=== PATIENT | female | born 1955 | race Caucasian/White ===

== ENCOUNTER 2018-12-02 09:54 | Emergency (ER) | payer SELFPAY ==
[~2018-12-02] VITALS: Ht 157.5 cm; Wt 84.5 kg
[2018-12-02 10:00] VITALS: BP 205/106
--- NOTE | 2018-12-02 10:01 | NUR ---
PT AMBULATES TO BED 4
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
--- NOTE | 2018-12-02 10:19 | NUR ---
Patient being evaluated by physician at bedside.
[2018-12-02] MEDS ORDERED: LISINOPRIL 20 MG TAB PO SCH (10:25)
[2018-12-02] MEDS ORDERED: KETOROLAC 60 MG/2 ML VIAL IM ONE (10:25)
--- NOTE | 2018-12-02 10:54 | NUR ---
XRAY AT BEDSIDE
--- NOTE | 2018-12-02 11:39 | NUR ---
PT. IS RESTING COMFORTABLY IN BED, RR EVEN AND UNLABORED. WILL CONTINUE TO MONITOR.
[2018-12-02 11:55] VITALS: BP 178/82
--- NOTE | 2018-12-02 11:55 | NUR ---
Patient discharged with v/s stable. Written and verbal after care instructions given and explained. Patient alert, oriented and verbalized understanding of instructions. Ambulatory with steady gait. All questions addressed prior to discharge. ID band removed. Patient advised to follow up with PMD. Rx of NAPROSYN 375MG, LISINOPRIL 20MG given. Patient educated on indication of medication including possible reaction and side effects. Opportunity to ask questions provided and answered.
== END 2018-12-02 11:55 | disposition home or self-care (01) ==
LOC: MED 09:54
DX: S80.01XA Contusion of right knee, initial encounter (principal); S70.01XA Contusion of right hip, initial encounter; S40.022A Contusion of left upper arm, initial encounter; W01.0XXA Fall on same level from slipping, tripping and stumbling without subsequent striking against object, initial encounter; Y93.89 Activity, other specified; Y92.89 Other specified places as the place of occurrence of the external cause; Y99.8 Other external cause status; I10 Essential (primary) hypertension
CPT/HCPCS: 29505; 73562; 96372; 99283; J1885; Q0092